=== PATIENT | female | born 1985 | race Two or more races ===

== ENCOUNTER 2018-04-11 20:47 | Emergency (ER) | payer BC ==
[~2018-04-11] VITALS: Ht 149.9 cm; Wt 68.0 kg
[~2018-04-11 20:47] MED LIST: AMOX500T PO
[2018-04-11 21:00] VITALS: BP 105/69
[2018-04-11] MEDS ORDERED: CEPH-264 PO (21:49)
--- NOTE | 2018-04-11 21:50 | PHYS DOC ---
Past Medical History Past Medical History: No Pertinent History (JACKIE CERNA APRN) Past Surgical History: No Surgical History (JACKIE CERNA APRN) Alcohol Use: None Drug Use: None (JACKIE CERNA APRN) Adult General Chief Complaint Chief Complaint: SORE THROAT HPI HPI Patient is a 32 year old female who presents with a sore throat 4 days. She states that it is very painful to swallow. She has tried [id number] pain relievers with mild relief. She denies nausea or vomiting. She denies headache or earache. (JACKIE CERNA APRN) Review of Systems Review of Systems Constitutional: Denies fever or chills [] Eyes: Denies change in visual acuity, redness, or eye pain [] HENT: See history of present illness Respiratory: Denies cough or shortness of breath [] Cardiovascular: No additional information not addressed in HPI [] GI: Denies abdominal pain, nausea, vomiting, bloody stools or diarrhea [] : Denies dysuria or hematuria [] Musculoskeletal: Denies back pain or joint pain [] Integument: Denies rash or skin lesions [] Neurologic: Denies headache, focal weakness or sensory changes [] Endocrine: Denies polyuria or polydipsia [] All other systems were reviewed and found to be within normal limits, except as documented in this note. (JACKIE CERNA APRN) Current Medications Current Medications Current Medications Medications (Trade) Dose Ordered Sig/Alexsandra Start Time Stop Time Status Last Admin Dose Admin Ceftriaxone Sodium (Rocephin Im) 1 gm 1X ONCE 04/11/18 22:30 04/11/18 22:30 DC 04/11/18 22:06 1 GM (KOLTON GALLAGHER MD) Allergies Allergies Allergies Coded Allergies Type Severity Reaction Last Updated Verified No Known Drug Allergies 06/15/15 No (KOLTON GALLAGHER MD) Physical Exam Physical Exam Constitutional: Well developed, well nourished, no acute distress, non-toxic appearance. [] HENT: Normocephalic, atraumatic, bilateral tympanic membranes normal, pharyngeal erythema with no oral exudates, nose normal. [] Eyes: PERRLA, EOMI, conjunctiva normal, no discharge. [] Neck: Normal range of motion, positive anterior cervical adenopathy, supple, no stridor. [] Cardiovascular:Heart rate regular rhythm, no murmur [] Lungs & Thorax: Bilateral breath sounds clear to auscultation [] Abdomen: Bowel sounds normal, soft, no tenderness, no masses, no pulsatile masses. [] Skin: Warm, dry, no erythema, no rash. [] Neurologic: Alert and oriented X 3, normal motor function, normal sensory function, no focal deficits noted. [] Psychologic: Affect normal, judgement normal, mood normal. [] (JACKIE CERNA APRN) Current Patient Data Vital Signs Vital Signs Date Time Temp Pulse Resp B/P (MAP) Pulse Ox O2 Delivery O2 Flow Rate FiO2 04/11/18 21:00 97.4 59 16 105/69 (81) 95 Room Air 97.4 (KOLTON GALLAGHER MD) EKG EKG [] (JACKIE CERNA APRN) Radiology/Procedures Radiology/Procedures [] (JACKIE CERNA APRN) Course & Med Decision Making Course & Med Decision Making Pertinent Labs and Imaging studies reviewed. (See chart for details) The rapid strep was negative. Given the patient's symptoms she will be treated. She was given a gram of Rocephin IM. (JACKIE CERNA APRN) Course & Med Decision Making Staff Physician Addendum: I was working in the ER during the course of this patient's visit. I was available for consultation as needed, but I was not directly involved in the care of this patient. (KOLTON GALLAGHER MD) Dragon Disclaimer Dragon Disclaimer This electronic medical record was generated, in whole or in part, using a voice recognition dictation system. (JACKIE CERNA APRN) Departure Departure Impression: Primary Impression: Pharyngitis, acute Disposition: 01 HOME, SELF-CARE Condition: STABLE Referrals: NO PCP (PCP) Patient Instructions: Viral and Bacterial Pharyngitis Additional Instructions: Take the medication as directed. Follow-up with your primary care provider in 4 days if not improving or return to the emergency department if worsening. You may take ibuprofen or Tylenol for pain. You may use [id number] sore throat lozenges to help with pain relief. Scripts Cephalexin (KEFLEX) 500 Mg Capsule 1 CAP PO TID for acute pharyngitis, #30 CAP Prov: JACKIE CERNA APRN 04/11/18 JACKIE CERNA APRN Apr 11, 2018 21:50 KOLTON GALLAGHER MD Apr 12, 2018 01:13
[2018-04-11] MEDS ORDERED: cefTRIAXone IM 1 GM VIAL IM ONE (22:30)
== END 2018-04-11 22:10 | disposition home or self-care (01) ==
LOC: ER 20:47
DX: J02.9 Acute pharyngitis, unspecified (principal); R59.0 Localized enlarged lymph nodes
CPT/HCPCS: 87070; 87880; 96372; 99283; J0696

== ENCOUNTER → 2018-11-16 | Outpatient (CLI) | payer BC ==
[~2018-11-16] VITALS: Ht 154.9 cm; Wt 72.6 kg
[~2018-11-16] MED LIST changes: +CEPH-264 PO; +SINCALIDE 1.45 MCG in IV NORMAL SALINE 50ML 30 ML IV ONE
--- NOTE | 2018-11-16 13:01 | RAD ---
EXAM: Nuclear hepatobiliary scan. HISTORY: Right upper quadrant pain. Nausea. TECHNIQUE: Following intravenous administration of 5.5 mCi Tc 99m Choletec, anterior images of the abdomen were obtained at five minute intervals through one hour. Subsequently, 1.45 mcg CCK was administered and additional images to assess gallbladder ejection fraction were obtained. FINDINGS: There is prompt radiotracer uptake by the liver. No focal defect is seen. There is normal excretion into the biliary tree. The gallbladder is visualized within 10 minutes and there is free flow into the duodenum. The gallbladder ejection fraction is 60%. IMPRESSION: Normal radionuclide biliary scan. Electronically signed by: Maria Teresa Munoz MD (11/16/2018 12:58 PM) [facility]
== END | disposition home or self-care (01) ==
LOC: NM 10:28
PROVIDERS: ATTEND Nurse Practitioner Family
DX: K81.0 Acute cholecystitis (principal); R10.11 Right upper quadrant pain; R11.0 Nausea
CPT/HCPCS: 78227; A9537; J2805

== ENCOUNTER 2020-06-16 18:39 | Emergency (ER) | payer BC ==
[~2020-06-16] VITALS: Ht 154.9 cm; Wt 72.7 kg
[~2020-06-16 18:39] MED LIST changes: -SINCALIDE 1.45 MCG in IV NORMAL SALINE 50ML 30 ML IV ONE
[2020-06-16 21:01] LABS: BILIRUBIN,URINE NEGATIVE (NEG); CLARITY,URINE CLEAR; COLOR,URINE YELLOW; NITRITE,URINE NEGATIVE (NEG); PROTEIN,URINE NEGATIVE (NEG-TRACE)
[2020-06-16 21:07] LABS: BACTERIA,URINE 0 /HPF (0-FEW); RBC,URINE OCC /HPF (0-2)
[2020-06-16 21:08] LABS: BARBITURATES NEG (NEG); BENZODIAZEPINES NEG (NEG); CANNABINOIDS NEG (NEG); COCAINE NEG (NEG); METHADONE NEG (NEG); OPIATES NEG (NEG); PHENCYCLIDINE NEG (NEG)
[2020-06-16 21:10] LABS: AMPHETAMINE/METHAMPHETAMINE NEG (NEG)
--- NOTE | 2020-06-16 21:49 | PHYS DOC ---
Past Medical History Past Medical History: No Pertinent History Past Surgical History: No Surgical History Smoking Status: Never Smoker Alcohol Use: None Drug Use: None General Adult EDM: Chief Complaint: BACK PAIN - NO INJURY HPI: HPI: 34 yo (youngest child is 10yoa) who denies any past medical history presents the ED with complains of bilateral upper back pain that is described as sore, tender to the touch and nonradiating has been present for the past 2 days over the "bra line," has not taken anything for the pain. Has no PCP and takes no routine medications. No known drug allergies. No history of Covid or recent URI. Cannot recall any strenuous exercise, increased heavy lifting or physical activity. Has had the Mirena for more than a few years. 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 States her back muscles along her spine feel "raised." Denies any weight loss, saddle anesthesia, urine or bowel retention or incontinence, flulike symptoms or myalgias. Is present here with her -consents to his knowledge of her medical care. No history of alcohol or IV drug use. Review of Systems: Review of Systems: Constitutional: Denies fever or chills. [] Eyes: Denies change in visual acuity. [] HENT: Denies nasal congestion or sore throat. [] Respiratory: Denies cough or shortness of breath. [] Cardiovascular: Denies chest pain or edema. [] GI: Denies abdominal pain, nausea, vomiting, bloody stools or diarrhea. [] : Denies dysuria, hematuria, vaginal bleeding Musculoskeletal: Denies joint pain or deformity, denies saddle anesthesia, urinary bowel retention or incontinence Integument: Denies rash or blistering lesions Neurologic: Denies headache, neck stiffness, neck pain, focal weakness or sensory changes. [] Endocrine: Denies polyuria or polydipsia. [] Lymphatic: Denies swollen glands or weight loss or night sweats Psychiatric: Denies depression or anxiety. [] Heart Score: C/O Chest Pain: No Risk Factors: Risk Factors: DM, Current or recent (<one month) smoker, HTN, HLP, family history of CAD, obesity. Risk Scores: Score 0 - 3: 2.5% MACE over next 6 weeks - Discharge Home Score 4 - 6: 20.3% MACE over next 6 weeks - Admit for Clinical Observation Score 7 - 10: 72.7% MACE over next 6 weeks - Early Invasive Strategies Allergies: Allergies: Allergies Coded Allergies Type Severity Reaction Last Updated Verified No Known Drug Allergies 06/15/15 No Physical Exam: PE: Constitutional: Well developed, well nourished, no acute distress, non-toxic appearance. HENT: Normocephalic, atraumatic, Eyes: EOMI, conjunctiva normal, no discharge. Neck: Normal range of motion, supple, Cardiovascular: S1/2 present, regular rhythm Lungs & Thorax: Speaking in full sentences, bilateral equal chest rise, no tachypnea or increased work of breathing Abdomen: soft, no tenderness, Skin: Warm, dry, no erythema, no rash. [] Back: No midline tenderness or step-offs, no CVA tenderness, pain is localized over bilateral thoracic spines worse over the left paraspinal T4-5 region than right T4-5 w/ no rash or subcutaneous emphysema, pain is reproducible and worse with patient's upper extremity movements and twisting of the torso-no associated deformity or mass, no signs of trauma Extremities: No tenderness, no cyanosis, no lower extremity edema Neurologic: Alert and oriented X 3, normal motor function, normal sensory function, no focal deficits noted. [] Psychologic: Affect normal, judgement normal, mood normal. [] Current Patient Data: Labs: Laboratory Tests Test 06/16/20 20:34 06/16/20 20:49 Urine Collection Type Unknown Urine Color Yellow Urine Clarity Clear Urine pH 7.0 (<5.0-8.0) Urine Specific [place] 1.015 (1.000-1.030) Urine Protein Negative mg/dL (NEG-TRACE) Urine Glucose (UA) Negative mg/dL (NEG) Urine Ketones (Stick) Negative mg/dL (NEG) Urine Blood Negative (NEG) Urine Nitrite Negative (NEG) Urine Bilirubin Negative (NEG) Urine Urobilinogen Dipstick 1.0 mg/dL (0.2 mg/dL) Urine Leukocyte Esterase Small (NEG) Urine RBC Occ /HPF (0-2) Urine WBC 1-4 /HPF (0-4) Urine Squamous Epithelial Cells Mod /LPF Urine Bacteria 0 /HPF (0-FEW) Urine Mucus Slight /LPF Urine Opiates Screen Neg (NEG) Urine Methadone Screen Neg (NEG) Urine Barbiturates Neg (NEG) Urine Phencyclidine Screen Neg (NEG) Urine Amphetamine/Methamphetamine Neg (NEG) Urine Benzodiazepines Screen Neg (NEG) Urine Cocaine Screen Neg (NEG) Urine Cannabinoids Screen Neg (NEG) Urine Ethyl Alcohol Neg (NEG) POC Urine HCG, Qualitative Hcg negative (Negative) EKG: EKG: Sinus rhythm 65 bpm, no axis deviation, normal intervals, no T wave inversions, no ST elevations or ST depressions, no active chest pain Radiology/Procedures: Radiology/Procedures: IMAGING REPORT Signed PATIENT: LESLIE ENGEL ACCOUNT: [id number] : 1985 LOCATION: ER AGE: 34 SEX: F EXAM STATUS: REG ER ORD. PHYSICIAN: KAL ANNE DO REASON: bilateral upper back pain, hypotension, r/o dissection PROCEDURE: CT ANGIOGRAPHY CHEST CTA chest with contrast dated 06/17/2020. No comparison available. CLINICAL INDICATION: Upper back pain and hypotension. TECHNIQUE: Contiguous axial imaging the chest performed with thin cut coronal and sagittal reconstruction. Study was performed as dedicated CTA with MIPS 3-D reconstruction may or dose. FINDINGS: Contrast bolus is adequate. Ascending aorta and aortic arch are normal in caliber. No intimal flap or periaortic fluid collection. Aortic root is within normal limits. Heart size within normal limits. No pericardial effusion. No mediastinal, hilar or axillary lymphadenopathy. Thyroid gland unremarkable. Central airways are patent. Lungs are clear. No consolidation or pleural effusion. No pneumothorax. Images of the upper abdomen show diffuse low-density liver compatible with fatty infiltration. No apparent mass. Biliary tree normal in caliber. Gallbladder surgically absent. Bone windows show no acute finding. Mild multilevel spondylosis. IMPRESSION: 1. No acute abnormality of chest. No evidence of aortic dissection. 2. Clear lungs. 3. Fatty infiltration of the liver. Electronically signed by: Mathieu Stoner MD (06/17/2020 2:33 AM) [facility] [place] and SIGNED BY: MATHIEU STONER MD DATE: 06/17/20 [id number] IMAGING REPORT Signed PATIENT: LESLIE ENGEL ACCOUNT: [id number] : 1985 LOCATION: ER AGE: 34 SEX: F EXAM STATUS: REG ER ORD. PHYSICIAN: KAL ANNE DO REASON: back pain PROCEDURE: PORTABLE CHEST 1V Single view chest dated 06/16/2020: No comparison available. Clinical Indication: Back pain. Findings: Single upright portable exam of the chest was performed. Heart size and mediastinal contours are within normal limits given technique. The lungs are clear without evidence of focal consolidation. Vascular interstitium is within normal limits. Impression:: No acute radiographic abnormality. Electronically signed by: Mathieu Stoner MD (06/17/2020 3:36 AM) [facility] [place]CTATED and SIGNED BY: MATHIEU STONER MD DATE: 06/17/20 [id number] Course & Med Decision Making: Course & Med Decision Making Pertinent Labs and Imaging studies reviewed. (See chart for details) *Lengthy ED stay due to high volume in ED, acuity of critical pts and ED staffing.* Concern by her bilateral upper paraspinal thoracic back pain, worse around left upper back than right. Suspect musculoskeletal back pain - pain is not midline, is reproducible. Pt afebrile, with no tachycardia or leukocytosis. MAP on lower end of normal when sleeping (SBP increased to 100 when upright), normal U/A, CXR and CTA chest w/no dissection. Pt in no distress, sleeping comfortably, no pain out of or porportion. No ketonuria, saddle anesthesia, urine or bowel retention or incontinence. At time of discharge patient's blood pressure was 120/67. Will discharge home with strict ED return precautions were given for syncope, neurologic deficits, dehydration, shortness of breath, chest pain or severe pain. Encouraged urgent outpatient follow-up with PMD in 24 to 48 hours for reevaluation. Life-threatening processes were considered but are low suspicion at this time, given history, physical exam and ED workup. Pt was educated on all prescription medications and adverse effects. All patient's questions were answered and pt was stable at time of discharge. Life/limb-threatening differential includes but is not limited to, aortic dissection/aneurysm, cauda equina syndrome, transverse myelitis, spinal cord/epidural compression syndromes, discitis, spinal stenosis, epidural abscess or hematoma, osteomyelitis, disc herniation, surgical abdomen, stable or unstable fracture, renal/ureteral colic, sepsis, meningitis, musculoskeletal injury, traumatic injury, intraabdominal/retroperitoneal or pelvic bleeding. I spoken with the patient and her caregivers. I explained the patient's condition, diagnoses and treatment plan based on the information available to me at this time. I have answered the patient and her caregiver's questions and addressed any concerns. The patient and her caregivers have a good understanding of patient's diagnosis, condition and treatment plan as can be expected at this point. Vital signs have been stable. Patient's condition is stable and appropriate for discharge from the emergency department. Patient will pursue further outpatient evaluation with primary care physician or other designated or consulting physician as outlined in the discharge instructions. The patient and/or caregivers are agreeable to this plan of care and follow-up instructions have been explained in detail. The patient and/or caregivers have received these instructions in written form and have expressed an understanding of the discharge instructions. The patient and/or caregivers are aware that any significant change of condition or worsening of symptoms should prompt immediate return to this or the closest emergency department [facility] Disclaimer: Lise Disclaimer: This electronic medical record was generated, in whole or in part, using a voice recognition dictation system. Departure Departure Impression: Primary Impression: Upper back pain on left side Additional Impression: Upper back pain on right side Disposition: 01 HOME / SELF CARE / HOMELESS Condition: STABLE Referrals: NO PCP (PCP) Follow-up with your primary care physician or FOLLOW UP WITH FAMILY MEDICINE: Family Medicine Address: [address] [place] [address] Patient Instructions: Back Pain, Adult, Musculoskeletal Pain Additional Instructions: EMERGENCY DEPARTMENT GENERAL DISCHARGE INSTRUCTIONS Thank you for coming to [facility] (ED) today and trusting us with you care. We trust that you had a positive experience in our Emergency Department. If you wish to speak to the department management, you may call the Director at [phone]. YOUR FOLLOW UP INSTRUCTIONS ARE FOLLOWS: 1. Do you have a private Doctor? If you do not have a private doctor, please ask for a resource list of physicians or clinics that may be able to assist you with follow up care. 2. The Emergency Physicain has interpreted your x-rays. The X-Ray specialist will also review them. If there is a change in the findings, you will be notified in 48 hours when at all possible. 3. A lab test or culture has been done, your results will be reviewed and you will be notified if you need a change in treatment. ADDITIONAL INSTRUCTIONS AND INFORMATION: 1. Your care today has been supervised by a physician who is specially trained in emergency care. Many problems require more than one evaluation for a complete diagnosis and treatment. We recommend that you schedule your follow up appointment as recommended to ensure complete treatment of you illness or injury. If you are unable to obtain follow up care and continue to have a problem, or if your condition worsens, we recommend that you return to the ED. 2. We are not able to safely determine your condition over the phone nor are we able to give sound medical advice over the phone. For these safety reasons, if you call for medical advice we will ask you to come to the ED for further evaluation. 3. If you have any questions regarding these discharge instructions please call the ED at [phone]. SAFETY INFORMATION: In the interest of safety, wellness, and injury prevention; we encourage you to wear your sealbelt, if you smoke; quite smoking, and we encourage family to use a protective helmet for bicycling and other sporting events that present an increased risk for head injury. IF YOUR SYMPTOMS WORSEN OR NEW SYMPTOMS DEVELOP, OR YOU HAVE CONCERNS ABOUT YOUR CONDITION; OR IF YOUR CONDITION WORSENS WHILE YOU ARE WAITING FOR YOUR FOLLOW UP APPOINTMENT; EITHER CONTACT YOUR PRIMARY CARE DOCTOR, THE PHYSICIAN WHOSE NAME AND NUMBER YOU WERE GIVEN, OR RETURN TO THE ED IMMEDIATELY. Scripts Cyclobenzaprine Hcl (CYCLOBENZAPRINE HCL) 10 Mg Tablet 1 TAB PO TID, #21 TAB Prov: KAL ANNE DO 06/17/20 KAL ANNE DO Jun 16, 2020 21:49
[2020-06-16] MEDS ORDERED: LIDOCAINE (700MG/PATCH) PATCH. TD ONE (22:00)
[2020-06-16 22:33] LABS: BASO # 0.1 x10^3/uL (0.0-0.2); BASO % 1 % (0-3); EOS # 0.1 x10^3/uL (0.0-0.7); EOS % 2 % (0-3); HEMATOCRIT 40.9 % (36.0-47.0); HEMOGLOBIN 14.1 g/dL (12.0-15.5); LYMPH # 4.1 x10^3/uL (1.0-4.8); LYMPH % 47 % (24-48); MEAN CORPUSCULAR HEMOGLOBIN 31 pg (25-35); MEAN CORPUSCULAR HGB CONC 34 g/dL (31-37); MEAN CORPUSCULAR VOLUME 90 fL (79-100); MONO # 0.6 x10^3/uL (0.0-1.1); MONO % 7 % (0-9); NEUT # 3.8 x10^3/uL (1.8-7.7); NEUT % 44 % (31-73); PLATELET COUNT 286 x10^3/uL (140-400); RED BLOOD COUNT 4.53 x10^6/uL (3.50-5.40); RED CELL DISTRIBUTION WIDTH 13.2 % (11.5-14.5); WHITE BLOOD COUNT 8.7 x10^3/uL (4.0-11.0)
[2020-06-16 22:50] LABS: PREG TEST PT QUAL NEGATIVE (NEG)
[2020-06-16 22:53] LABS: CALCIUM 8.7 mg/dL (8.5-10.1); CREATININE 0.6 mg/dL (0.6-1.0); GFR 115.1
[2020-06-16 23:00] LABS: ALBUMIN/GLOBULIN RATIO 1.2 (1.0-1.7); TOTAL BILIRUBIN 0.4 mg/dL (0.2-1.0); TOTAL PROTEIN 7.3 g/dL (6.4-8.2)
--- NOTE | 2020-06-17 00:31 | EKG ---
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
[2020-06-17] MEDS: diazePAM 5 MG TABLET PO ONE ×2 (02:00→05:17)
[2020-06-17] MEDS ORDERED: CONTRAST GIVEN. MC PRN (02:15)
[2020-06-17] MEDS ORDERED: IV NORMAL SALINE 1000ML BAG 1,000 ML IV ONE ×2 (02:30)
[2020-06-17] MEDS ORDERED: IOHEXOL 350 MG/ML 100 ML VIAL. IV ONE (02:30)
--- NOTE | 2020-06-17 02:36 | RAD ---
CTA chest with contrast dated 06/17/2020. No comparison available. CLINICAL INDICATION: Upper back pain and hypotension. TECHNIQUE: Contiguous axial imaging the chest performed with thin cut coronal and sagittal reconstruction. Study was performed as dedicated CTA with MIPS 3-D reconstruction may or dose. FINDINGS: Contrast bolus is adequate. Ascending aorta and aortic arch are normal in caliber. No intimal flap or periaortic fluid collection. Aortic root is within normal limits. Heart size within normal limits. N o pericardial effusion. No mediastinal, hilar or axillary lymphadenopathy. Thyroid gland unremarkable . Central airways are patent. Lungs are clear. No consolidation or pleural effusion. No pneumothorax. Images of the upper abdomen show diffuse low-density liver compatible with fatty infiltration. No ana arent mass. Biliary tree normal in caliber. Gallbladder surgically absent. Bone windows show no acute finding. Mild multilevel spondylosis. IMPRESSION: 1. No acute abnormality of chest. No evidence of aortic dissection. 2. Clear lungs. 3. Fatty infiltration of the liver. Electronically signed by: Mathieu Stoner MD (06/17/2020 2:33 AM) [facility]
--- NOTE | 2020-06-17 03:38 | RAD ---
Single view chest dated 06/16/2020: No comparison available. Clinical Indication: Back pain. Findings: Single upright portable exam of the chest was performed. Heart size and mediastinal contours are with in normal limits given technique. The lungs are clear without evidence of focal consolidation. Vascul ar interstitium is within normal limits. Impression:: No acute radiographic abnormality. Electronically signed by: Mathieu Stoner MD (06/17/2020 3:36 AM) [facility]
[2020-06-17] MEDS ORDERED: CYCL10TA2 PO (04:35)
[2020-06-17 05:09] VITALS: BP 118/71
== END 2020-06-17 05:25 | disposition home or self-care (01) ==
LOC: ER 18:39
DX: M54.6 Pain in thoracic spine (principal)
CPT/HCPCS: 36415; 71045; 71275; 80053; 80307; 81001; 81025; 83690; 83735; 83880; 84484; 84703; 85025; 85379; 87086; 93005; 96360; 99285; J7030; Q9967